=== PATIENT | male | born 1980 | race Two or more races ===

== ENCOUNTER 2018-04-13 17:43 | Inpatient (IN) | payer OTHER ==
[~2018-04-13] VITALS: Ht 167.6 cm; Wt 66.9 kg
[2018-04-13] MEDS ORDERED: InsuLIN REG 1unit/0.01ml Soln (100units/ml) IV ONE (18:15)
[2018-04-13] MEDS ORDERED: SODIUM CHLORIDE 0.9% 1,000 ML IV ONE (18:15)
[2018-04-13 18:39] LABS: Basophils # (auto) 0 uL; Basophils % (auto) 0.5 % (0.0-2.0); Eosinophils # (auto) 0.1 uL; Eosinophils % (auto) 2.2 % (0.0-7.0); Hematocrit 46.1 % (41.0-53.0); Hemoglobin 15.3 g/dL (13.5-17.5); Lymphocytes # (auto) 2.2 uL; Lymphocytes % (auto) 34.6 % (10.0-50.0); Mean Corpuscular Hemoglobin 30.1 pg (28.0-32.0); Mean Corpuscular Hgb Conc. 33.3 g/dL (32.0-36.0); Mean Corpuscular Volume 90.2 fL (80.0-100.0); Monocytes # (auto) 0.6 uL; Monocytes % (auto) 9.3 % (0.0-12.0); Neutrophils # (auto) 3.3 uL; Neutrophils % (auto) 53.4 % (37.0-80.0); Nucleated Red Blood Cells % 0.1 %; Platelet Count (auto) 259 10^3/uL (140-450); Red Cell Distribution Width 13.2 % (11.8-14.3); White Blood Cell 6.3 10^3/uL (4.4-10.8)
[2018-04-13 18:50] LABS: Calcium 9.2 mg/dL (8.5-10.1); Magnesium 2.3 mg/dL (1.6-2.6); Potassium 4.3 mmol/L (3.5-5.1)
[2018-04-13 18:52] LABS: Bilirubin, Total 0.6 mg/dL (0.2-1.0); Total Protein 7.6 g/dL (6.4-8.2)
[2018-04-13 19:10] LABS: BUN/Creatinine Ratio 14.3
[2018-04-13 21:47] LABS: Urine Bacteria NONE SEEN /hpf (None Seen); Urine Blood Negative /uL (Negative); Urine Specific Gravity 1.038 (1.001-1.035); Urine WBC <1 /hpf (0 - 3)
[2018-04-14] MEDS ORDERED: SODIUM CHLORIDE 0.9% 1,000 ML IV ONE (02:30)
[2018-04-14] MEDS ORDERED: DEXTROSE (50%) 50ML SYRG IV PRN ×2 (02:30→12:45)
[2018-04-14] MEDS ORDERED: InsuLIN REG 1unit/0.01ml Soln (100units/ml) SC ONE (02:45)
[2018-04-14 04:45] VITALS: BP 127/72
[2018-04-14 05:00] VITALS: BP 127/72
[2018-04-14] MEDS: ACCU-CHEK COMFORT CURVE STRIP VI SCH ×5 (05:11→21:20)
[2018-04-14] MEDS: InsuLIN REG 1unit/0.01ml Soln (100units/ml) SC SCH ×5 (05:14→21:21)
[2018-04-14] MEDS ORDERED: ONDANSETRON HCL 4 MG/2 ML VIAL IV PRN (05:15)
[2018-04-14] MEDS ORDERED: INSLANTI SC (05:36)
[2018-04-14 07:02] LABS: Basophils # (auto) 0 uL; Basophils % (auto) 0.5 % (0.0-2.0); Eosinophils # (auto) 0.2 uL; Eosinophils % (auto) 3.2 % (0.0-7.0); Hematocrit 43.3 % (41.0-53.0); Hemoglobin 14.9 g/dL (13.5-17.5); Lymphocytes # (auto) 2.3 uL; Lymphocytes % (auto) 43.5 % (10.0-50.0); Mean Corpuscular Hemoglobin 30.8 pg (28.0-32.0); Mean Corpuscular Hgb Conc. 34.5 g/dL (32.0-36.0); Mean Corpuscular Volume 89.2 fL (80.0-100.0); Monocytes # (auto) 0.6 uL; Monocytes % (auto) 11.6 % (0.0-12.0); Neutrophils # (auto) 2.2 uL; Neutrophils % (auto) 41.2 % (37.0-80.0); Nucleated Red Blood Cells % 0.1 %; Platelet Count (auto) 229 10^3/uL (140-450); Red Blood Cells 4.85 10^6/uL (4.5-5.90); Red Cell Distribution Width 12.8 % (11.8-14.3); White Blood Cell 5.3 10^3/uL (4.4-10.8)
[2018-04-14 07:46] LABS: BUN/Creatinine Ratio 19.5; Calcium 8.7 mg/dL (8.5-10.1); Potassium 3.8 mmol/L (3.5-5.1)
[2018-04-14 08:00] VITALS: BP 107/76
[2018-04-14] MEDS ORDERED: INSULIN NPH Isophane (HUMAN) 1unit/0.01ml Susp(100units/ml) SC ONE (12:45)
[2018-04-14 13:00] VITALS: BP 103/74
[2018-04-14] MEDS ORDERED: ACETAMINOPHEN 325 MG TAB PO ONE (13:30)
[2018-04-14] MEDS ORDERED: ACETAMINOPHEN 325 MG TAB PO PRN (13:30)
[2018-04-14 16:42] VITALS: BP 101/70
[2018-04-14 22:00] VITALS: BP 107/72
[2018-04-15 05:00] VITALS: BP 101/65
[2018-04-15] MEDS: ACCU-CHEK COMFORT CURVE STRIP VI SCH ×2 (05:45→11:11)
[2018-04-15] MEDS: InsuLIN REG 1unit/0.01ml Soln (100units/ml) SC SCH ×2 (05:45→11:31)
[2018-04-15] MEDS ORDERED: INSULIN NPH Isophane (HUMAN) 1unit/0.01ml Susp(100units/ml) SC SCH ×2 (08:00→17:30)
[2018-04-15 08:51] VITALS: BP 104/58
[2018-04-15 13:00] VITALS: BP 127/94
[2018-04-15 15:59] VITALS: BP 127/94
== END 2018-04-15 17:50 | DRG 639 ==
LOC: EEVIPCON 17:43 → ER 17:43 → OVERFLOW 17:44 → WEST WING 04-14 04:38
PROVIDERS: ADMIT Nurse Practitioner Family; ATTEND Internal Medicine
DX: E10.65 Type 1 diabetes mellitus with hyperglycemia (principal); H57.12 Ocular pain, left eye; Z79.4 Long term (current) use of insulin
CPT/HCPCS: 36415; 80048; 80053; 81001; 82010; 82962; 83036; 83735; 85025; 96361; 96374; J1815

== ENCOUNTER 2018-04-19 16:28 | Inpatient (IN) | payer OTHER ==
[~2018-04-19] VITALS: Ht 165.1 cm; Wt 76.2 kg
[2018-04-19] MEDS ORDERED: SODIUM CHLORIDE 0.9% 1,000 ML IV ONE (16:42)
[2018-04-19] MEDS ORDERED: InsuLIN REG 1unit/0.01ml Soln (100units/ml) IV ONE (16:45)
[2018-04-19 17:14] LABS: Basophils # (auto) 0 uL; Basophils % (auto) 0.3 % (0.0-2.0); Eosinophils # (auto) 0.1 uL; Eosinophils % (auto) 2.3 % (0.0-7.0); Hematocrit 43.1 % (41.0-53.0); Hemoglobin 14.8 g/dL (13.5-17.5); Lymphocytes # (auto) 1.8 uL; Lymphocytes % (auto) 33.4 % (10.0-50.0); Mean Corpuscular Hemoglobin 30.8 pg (28.0-32.0); Mean Corpuscular Hgb Conc. 34.4 g/dL (32.0-36.0); Mean Corpuscular Volume 89.6 fL (80.0-100.0); Monocytes # (auto) 0.2 uL; Monocytes % (auto) 3.9 % (0.0-12.0); Neutrophils # (auto) 3.2 uL; Neutrophils % (auto) 60.1 % (37.0-80.0); Nucleated Red Blood Cells % 0.1 %; Platelet Count (auto) 242 10^3/uL (140-450); Red Blood Cells 4.81 10^6/uL (4.5-5.90); Red Cell Distribution Width 13.1 % (11.8-14.3); White Blood Cell 5.3 10^3/uL (4.4-10.8)
[2018-04-19 17:32] LABS: Albumin 3.9 g/dL (3.4-5.0); Calcium 8.7 mg/dL (8.5-10.1); Potassium 4.4 mmol/L (3.5-5.1)
[2018-04-19 17:40] LABS: Bilirubin, Total 0.4 mg/dL (0.2-1.0); Magnesium 2.5 mg/dL (1.6-2.6); Total Protein 7.3 g/dL (6.4-8.2)
[2018-04-19] MEDS ORDERED: HYDROcodone-ACET 5/325MG TAB PO PRN (18:00)
[2018-04-19] MEDS ORDERED: MORPHINE SULF(PF) 0.5MG/ML 10ML VIAL IV PRN (18:00)
[2018-04-19] MEDS ORDERED: TEMAZEPAM 15 MG CAP PO PRN (18:00)
[2018-04-19] MEDS ORDERED: PROMETHAZINE HCL 25 MG/ML 1ML IV PRN (18:00)
[2018-04-19] MEDS ORDERED: LORazepam 0.5 MG TAB PO PRN (18:00)
[2018-04-19] MEDS ORDERED: ACETAMINOPHEN 500 MG TAB PO PRN (18:00)
[2018-04-19] MEDS ORDERED: LACTULOSE 20Gm/30ML SOLN PO PRN (18:00)
[2018-04-19] MEDS ORDERED: DEXTROSE (50%) 50ML SYRG IV PRN (18:00)
[2018-04-19] MEDS ORDERED: NITROGLYCERIN 0.4 MG SL TAB SL PRN (18:00)
[2018-04-19] MEDS ORDERED: NALBUPHINE HCL 10 MG/1ml INJECTION IV PRN (18:00)
[2018-04-20] MEDS: SODIUM CHLORIDE 0.9% 1,000 ML IV SCH ×2 (03:40→07:29)
[2018-04-20] MEDS: PANTOPRAZOLE 40 MG TAB PO SCH ×2 (03:45→08:55)
[2018-04-20] MEDS: ACCU-CHEK COMFORT CURVE STRIP VI SCH ×6 (03:46→11:45)
[2018-04-20] MEDS: InsuLIN REG 1unit/0.01ml Soln (100units/ml) SC SCH ×5 (03:52→11:48)
[2018-04-20 05:04] LABS: Urine Bacteria NONE SEEN /hpf (None Seen); Urine Blood Negative /uL (Negative); Urine Specific Gravity 1.011 (1.001-1.035); Urine WBC <1 /hpf (0 - 3)
[2018-04-20 10:34] LABS: Cholesterol 141 mg/dL (< 200); HDL Cholesterol 34 mg/dL (40-59); LDL Cholesterol 99 mg/dL (< 100); Triglycerides 130 mg/dL (< 150)
[2018-04-20 11:54] VITALS: BP 95/57
== END 2018-04-20 12:39 | DRG 639 ==
LOC: ER 16:28 → EEVIPCON 16:28 → TELE 16:29
PROVIDERS: ADMIT Internal Medicine; ATTEND Internal Medicine
DX: E11.65 Type 2 diabetes mellitus with hyperglycemia (principal); E11.21 Type 2 diabetes mellitus with diabetic nephropathy; M79.605 Pain in left leg; N18.2 Chronic kidney disease, stage 2 (mild); M79.604 Pain in right leg; E11.22 Type 2 diabetes mellitus with diabetic chronic kidney disease; Z83.3 Family history of diabetes mellitus
CPT/HCPCS: 36415; 80053; 80061; 81001; 82010; 82962; 83036; 83735; 85025; 85652; 94761; 96361; 96372; 96374; J1815